=== PATIENT | female | born 2000 | race Caucasian/White ===

== ENCOUNTER 2021-09-13 20:25 | Emergency (ER) | payer BC ==
[2021-09-13 21:45] LABS: ANION GAP 7.8 meq/L (7-15); CHLORIDE,CL 102 mmol/L (98-107); ESTIMATED GFR > 60 mL/min; SODIUM,NA 138 mmol/L (136-145)
== END 2021-09-13 22:35 | disposition home or self-care (01) ==
LOC: LL.ED 20:25
DX: D69.2 Other nonthrombocytopenic purpura (principal); R23.3 Spontaneous ecchymoses
CPT/HCPCS: 36415; 80053; 85025; 85610; 85652; 99283